=== PATIENT | female | born 1980 | race Caucasian/White ===

== ENCOUNTER → 2016-09-24 | Outpatient (CLI) | payer OTHER ==
--- NOTE | 2016-09-24 12:22 | US ---
Ultrasound of the Abdomen Complete History: Right upper quadrant and left upper quadrant Abdominal pain. Findings: Gallbladder: No shadowing calculi, wall thickening, or pericholecystic fluid. Common bile duct is 5 m m in diameter which is normal. Liver: Homogeneous in echogenicity and measures 15 cm in length. No definite lesions. Renal: Right kidney measures 10.6 x 4.7 x 5.4 cm and left kidney 11.8 x 6.1 x 5.3 cm without hydronep hrosis in either kidney. In the right kidney there is a 4 x 4 by 4 mm hyperechoic nonshadowing lesion . Spleen: Homogeneous and 10 cm in length without splenomegaly. Pancreas: Homogeneous without peripancreatic fluid. Aorta: Visualized upper abdominal aorta demonstrates no aneurysm. IVC: Grossly patent. Impression: 1. No cholelithiasis or biliary ductal dilation. 2. No hydronephrosis. 3. Right kidney 4 mm probable benign angiomyolipoma. 4. No peripancreatic fluid or aortic aneurysm. 5. No hepatosplenomegaly or ascites.
== END ==
LOC: CIMAGING 09:20
PROVIDERS: ATTEND Family Medicine
DX: R10.11 Right upper quadrant pain (principal); R10.12 Left upper quadrant pain
CPT/HCPCS: 76700-PO

== ENCOUNTER → 2019-02-20 | Outpatient (CLI) | payer OTHER | LOC: EMCIMAGING 08:24 ==

== ENCOUNTER → 2019-02-26 | Outpatient (CLI) | payer OTHER | LOC: FIMAGING 07:20 ==

== ENCOUNTER → 2019-03-05 | Outpatient (CLI) | payer OTHER | LOC: FIMAGING 10:57 ==